=== PATIENT | female | born 1975 | race Caucasian/White ===

== ENCOUNTER → 2016-11-08 | Outpatient (CLI) | payer OTHER ==
[~2016-11-08] MED LIST: IBUP-1222 PO; OMNIPAQUE 350 MG/ML, 100ML BOTTLE ONE; OXYC-302 PO; TRAM100T3 PO
== END | disposition home or self-care (01) ==
LOC: RAD 16:42
PROVIDERS: ATTEND Genetic Counselor, MS
DX: R07.9 Chest pain, unspecified (principal); R06.02 Shortness of breath; K80.80 Other cholelithiasis without obstruction
CPT/HCPCS: 71275; Q9967

== ENCOUNTER → 2016-12-13 | Outpatient (CLI) | payer OTHER ==
[~2016-12-13] MED LIST changes: +FERR325C PO; +HYDR-3240 PO; +MAGNESIUM PO; -OMNIPAQUE 350 MG/ML, 100ML BOTTLE ONE
[2016-12-13 14:21] LABS: BLOOD UREA NITROGEN 20 mg/dL (7-18)
[2016-12-13 14:24] LABS: ASPARTATE AMINO TRANSFERASE 10 U/L (15-37)
== END | disposition home or self-care (01) ==
LOC: STAR 13:12
PROVIDERS: ATTEND Thoracic Surgery (Cardiothoracic Vascular Surgery)
DX: Z01.818 Encounter for other preprocedural examination (principal)
CPT/HCPCS: 36415; 80053; 85025

== ENCOUNTER 2016-12-19 12:09 | Day surgery (SDC) | payer OTHER ==
[2016-12-13 13:42] VITALS: BP 120/83
[~2016-12-19] VITALS: Ht 162.6 cm; Wt 97.0 kg
[~2016-12-19 12:09] MED LIST changes: +BUPIVACAINE/PF-EPI 0.5% 1:200K ONE; -HYDR-3240 PO; -MAGNESIUM PO
[2016-12-19] MEDS ORDERED: LACTATED RINGERS 1,000 ML IV SCH ×2 (12:37→15:29)
[2016-12-19 12:38] VITALS: BP 120/83
[2016-12-19] MEDS ORDERED: LIDOCAINE 1%, 2ML ONE (12:47)
[2016-12-19] MEDS ORDERED: LIDOCAINE 1%, 2ML SQ PRN (13:00)
[2016-12-19] MEDS ORDERED: MAGNESIUM PO (13:06)
[2016-12-19] MEDS ORDERED: MIDAZOLAM 1 MG/ML, 2ML ONE (14:25)
[2016-12-19] MEDS ORDERED: FENTANYL PF 250 MCG/5ML ONE (14:25)
[2016-12-19] MEDS ORDERED: ACETAMINOPHEN 325 MG TABLET PO PRN (14:30)
[2016-12-19] MEDS ORDERED: FENTANYL PF 100 MCG/2ML IV PRN (14:30)
[2016-12-19] MEDS ORDERED: MEPERIDINE/PF 25MG/0.5ML IVPush PRN (14:30)
[2016-12-19] MEDS ORDERED: hydrALAzine 20 MG/ML, 1ML IV PRN (14:30)
[2016-12-19] MEDS ORDERED: EPHEDRINE 50 MG/ML, 1ML IVPush PRN (14:30)
[2016-12-19] MEDS ORDERED: LABETALOL 5MG/ML, 20ML IV PRN (14:30)
[2016-12-19] MEDS ORDERED: HYDROmorphone 1 MG/ML, 1ML IV PRN (14:30)
[2016-12-19] MEDS ORDERED: OXYcodone 5 MG/5 ML ORAL.SOL UDC PO PRN (14:30)
[2016-12-19] MEDS ORDERED: MIDAZOLAM 1 MG/ML, 2ML IV PRN (14:30)
[2016-12-19] MEDS ORDERED: ONDANSETRON 2MG/ML, 2ML IVPush PRN ×2 (14:30→15:30)
[2016-12-19] MEDS ORDERED: PROMETHAZINE 25 MG/ML, 1ML IV PRN (14:30)
[2016-12-19] MEDS ORDERED: HYDROcodone/APAP 7.5-325MG/15ML UDC PO PRN (14:30)
[2016-12-19] MEDS ORDERED: DEXAMETHASONE 4 MG/ML, 1ML ONE (14:46)
[2016-12-19] MEDS ORDERED: SUCCINYLCHOLINE 20 MG/ML, 10ML ONE (14:46)
[2016-12-19] MEDS ORDERED: KETOROLAC 30 MG/1 ML ONE (14:46)
[2016-12-19] MEDS ORDERED: ONDANSETRON 2MG/ML, 2ML ONE (14:46)
[2016-12-19] MEDS ORDERED: GLYCOPYRROLATE 0.2MG/1ML ONE (14:46)
[2016-12-19] MEDS ORDERED: ROCURONIUM 10 MG/ML ONE (14:46)
[2016-12-19] MEDS ORDERED: PROPOFOL 10 MG/ML, 20ML ONE (14:46)
[2016-12-19] MEDS ORDERED: NEOSTIGMINE 1 MG/ML, 10ML ONE (14:46)
[2016-12-19] MEDS ORDERED: morphine SULFATE 10 MG/ML, 1ML IVPush PRN (15:30)
[2016-12-19] MEDS ORDERED: HYDROcodone/APAP 5/325 TABLET PO PRN (15:30)
[2016-12-19] MEDS ORDERED: FENTANYL PF 100 MCG/2ML ONE (15:35)
[2016-12-19] MEDS ORDERED: OXYcodone 5 MG/5 ML ORAL.SOL UDC ONE (15:35)
[2016-12-24] MEDS ORDERED: HYDR-3240 PO (06:18)
== END 2016-12-19 17:10 | disposition home or self-care (01) ==
LOC: OUT 12:09
PROVIDERS: ATTEND Thoracic Surgery (Cardiothoracic Vascular Surgery)
DX: K80.10 Calculus of gallbladder with chronic cholecystitis without obstruction (principal); K82.8 Other specified diseases of gallbladder; Z98.84 Bariatric surgery status; D50.9 Iron deficiency anemia, unspecified; F41.9 Anxiety disorder, unspecified; F32.9 Major depressive disorder, single episode, unspecified; K21.9 Gastro-esophageal reflux disease without esophagitis; E66.01 Morbid (severe) obesity due to excess calories; Z68.36 Body mass index [BMI] 36.0-36.9, adult; F17.210 Nicotine dependence, cigarettes, uncomplicated; Z72.89 Other problems related to lifestyle
CPT/HCPCS: 47562; 88304; J0330; J1100; J1885; J2250; J2405; J2704; J2710; J3010; J3490; J7120

== ENCOUNTER → 2019-06-16 | Outpatient (CLI) | payer MEDICAID ==
[~2019-06-16] MED LIST changes: -BUPIVACAINE/PF-EPI 0.5% 1:200K ONE; +HYDR-3240 PO; +MAGNESIUM PO
== END | disposition home or self-care (01) ==
LOC: CFH 08:37
PROVIDERS: ATTEND Genetic Counselor, MS
DX: J32.9 Chronic sinusitis, unspecified (principal); Z82.49 Family history of ischemic heart disease and other diseases of the circulatory system; Z82.5 Family history of asthma and other chronic lower respiratory diseases
CPT/HCPCS: 70486

== ENCOUNTER 2019-07-07 08:00 | Day surgery (SDC) | payer MEDICAID ==
[~2019-07-07] VITALS: Ht 161.3 cm; Wt 97.1 kg
[~2019-07-07 08:00] MED LIST changes: +BACITRACIN OINT 500U/GM, 15 GM ONE; +EPINEPHRINE TOPICAL SOLN 1 MG/ML, 30ML ONE; +LIDOCAINE 1%-EPI 1:100K, 20ML ONE
[2019-07-07] MEDS ORDERED: LACTATED RINGERS 1,000 ML IV SCH (08:34)
[2019-07-07] MEDS ORDERED: ACYC-114 PO (08:36)
[2019-07-07] MEDS ORDERED: GABA300C10 PO (08:36)
[2019-07-07] MEDS ORDERED: GABAPENTIN 300 MG CAPSULE PO ONE (09:00)
[2019-07-07] MEDS ORDERED: ACETAMINOPHEN 500 MG TABLET PO ONE (09:00)
[2019-07-07 09:08] VITALS: BP 133/89
[2019-07-07] MEDS ORDERED: MIDAZOLAM 1 MG/ML, 2ML ONE (09:12)
[2019-07-07] MEDS ORDERED: FENTANYL PF 250 MCG/5ML ONE (09:12)
[2019-07-07] MEDS ORDERED: HYDROmorphone 2 MG/ML, 1ML IVPush PRN (09:30)
[2019-07-07] MEDS ORDERED: HALOPERIDOL 5 MG/ML IV PRN (09:30)
[2019-07-07] MEDS ORDERED: MEPERIDINE/PF 25MG/ML,1ML IVPush PRN (09:30)
[2019-07-07] MEDS ORDERED: LABETALOL 5MG/ML, 20ML IV PRN (09:30)
[2019-07-07] MEDS ORDERED: OXYcodone 5 MG/5 ML ORAL.SOL UDC PO PRN (09:30)
[2019-07-07] MEDS ORDERED: PROMETHAZINE 25 MG/ML, 1ML IV PRN (09:30)
[2019-07-07] MEDS ORDERED: FENTANYL PF 100 MCG/2ML IV PRN (09:30)
[2019-07-07] MEDS ORDERED: hydrALAzine 20 MG/ML, 1ML IV PRN (09:30)
[2019-07-07] MEDS ORDERED: DEXAMETHASONE 4 MG/ML, 1ML ONE (12:06)
[2019-07-07] MEDS ORDERED: GLYCOPYRROLATE 0.2MG/1ML, 5ML ONE (12:06)
[2019-07-07] MEDS ORDERED: NEOSTIGMINE 1 MG/ML, 10ML ONE (12:06)
[2019-07-07] MEDS ORDERED: SUCCINYLCHOLINE 20 MG/ML, 10ML ONE (12:06)
[2019-07-07] MEDS ORDERED: CEFAZOLIN 1,000 MG ONE (12:06)
[2019-07-07] MEDS ORDERED: ROCURONIUM 10MG/ML,5ML ONE (12:06)
[2019-07-07] MEDS ORDERED: PROPOFOL 10 MG/ML, 20ML ONE (12:06)
[2019-07-07] MEDS ORDERED: ONDANSETRON 2MG/ML, 2ML ONE (12:06)
[2019-07-07] MEDS ORDERED: MEPERIDINE/PF 25MG/ML,1ML ONE (12:53)
[2019-07-07] MEDS ORDERED: OXYcodone 5 MG/5 ML ORAL.SOL UDC ONE (13:03)
[2019-07-07] MEDS ORDERED: PROMETHAZINE 25 MG/ML, 1ML ONE (13:04)
[2019-07-07] MEDS ORDERED: FENTANYL PF 100 MCG/2ML ONE (13:20)
== END 2019-07-07 15:00 | disposition home or self-care (01) ==
LOC: OUT 08:00
PROVIDERS: ATTEND Otolaryngology
DX: J32.4 Chronic pansinusitis (principal); J34.2 Deviated nasal septum; Z72.89 Other problems related to lifestyle; Z79.899 Other long term (current) drug therapy; Z98.890 Other specified postprocedural states
CPT/HCPCS: 00160; 30520; 31253; 31259; 31267; 81025; 88304; 88311; J0330; J0690; J1100; J2175; J2250; J2405; J2550; J2704; J2710; J3010; J3490; J7120

== ENCOUNTER 2020-08-08 15:31 | Emergency (ER) | payer MEDICAID ==
[~2020-08-08] VITALS: Ht 162.6 cm; Wt 100.0 kg
[~2020-08-08 15:31] MED LIST changes: +ACYC-114 PO; -BACITRACIN OINT 500U/GM, 15 GM ONE; -EPINEPHRINE TOPICAL SOLN 1 MG/ML, 30ML ONE; +GABA300C10 PO; -LIDOCAINE 1%-EPI 1:100K, 20ML ONE
--- NOTE | 2020-08-08 16:43 | NUR ---
TO [facility] FROM LOBBY
--- NOTE | 2020-08-08 16:55 | NUR ---
PT HERE FOR C/O SWELLING IN THROAT FOR "ABOUT A MONTH", PT REPORTS SHE FELT SOB AND NUMBNESS ON BOTH ARMS THIS MORNING FROM PANIC ATTACK. PT PLACED ON VITALS MONITORS. CALL LIGHT WITHIN REACH.
[2020-08-08] MEDS ORDERED: DEXAMETHASONE 4 MG TABLET PO ONE (17:00)
--- NOTE | 2020-08-08 17:12 | NUR ---
Note louis in EDM - 08/08/20 at 1713 by TAISHA PROVIDER AT BEDSIDE. PT SITTING UP ON GURNEY C/O RIGHT BACK PAIN. PROVIDER AWARE. VSS. NAD. WILL CONTINUE TO MONITOR
[2020-08-08] MEDS ORDERED: DEXAMETHASONE 4 MG TABLET ONE (17:16)
[2020-08-08 17:56] VITALS: BP 144/72
--- NOTE | 2020-08-08 18:03 | NUR ---
PT AMBULATED TO DISCHARGE WITH STEADY GAIT. PT ENCOURAGED TO FOLLOW-UP DISCUSSED. PT EDUCATED TO RETURN TO THE ED WITH WORSENING SYMPTOMS OR CHANGES IN CONDITION. RX GIVEN. WORK NOTE GIVEN. PT VERBALIZED UNDERSTANIG OF ALL INSTRUCTIONS
== END 2020-08-08 18:06 | disposition home or self-care (01) ==
LOC: ED 18:00
DX: B34.9 Viral infection, unspecified (principal); Z20.828 Contact with and (suspected) exposure to other viral communicable diseases
CPT/HCPCS: 70360; 71045; 87635; 99284